=== PATIENT | male | born 1945 | race Caucasian/White ===

== ENCOUNTER 2016-11-20 06:11 | Inpatient (IN) | payer MEDICARE, OTHER ==
[2016-11-14 14:43] LABS: BUN (BLOOD UREA NITROGEN) 15 MG/DL (6-23); CALCIUM, SERUM 8.7 MG/DL (8.5-10.4); CHLORIDE, SERUM 107 MMOL/L (96-112); CO2 (CARBON DIOXIDE) 26 MMOL/L (24-34); CREATININE 1.13 MG/DL (0.70-1.30); GFR AFRICAN AMERICAN 75 ML/MIN (>=60); GFR NON AFRICAN AMERICAN 65 ML/MIN (>=60); GLUCOSE, SERUM 105 MG/DL (60-99); POTASSIUM, SERUM 3.5 MMOL/L (3.5-5.3); SODIUM, SERUM 143 MMOL/L (135-148)
--- NOTE | ~2016-11-20 | OP ---
Record Of Operation [facility] [address] [place]. [address] NAME: CONNIE VIGIL : 43 STATUS : ADM IN [facility]#: [id number] AGE: 71 ADM/REG DATE : 11/20/16 MR#: [id number] REPORT SERV DATE: 11/21/16 DICTATED BY: ERICK CUADRA II DATE: 11/21/16 REPORT STATUS : Draft TRANSCRIBED BY: MODL DATE: 11/21/16 DATE OF PROCEDURE: 11/20/2016 PREOPERATIVE DIAGNOSES: 1. Severe right lower extremity radiculopathy with neurogenic component. 2. Lumbar spinal stenosis, L2-3, L3-4 with remote history of L4-S1 fusion. 3. Adjacent segment degeneration with associated scoliosis and severe asymmetric right coronal collapse. POSTOPERATIVE DIAGNOSES: 1. Severe right lower extremity radiculopathy with neurogenic component. 2. Lumbar spinal stenosis, L2-3, L3-4 with remote history of L4-S1 fusion. 3. Adjacent segment degeneration with associated scoliosis and severe asymmetric right coronal collapse. PROCEDURE: 1. Lumbar laminectomy and facetectomy for decompression of the L2, L3, and L4 nerve roots. 2. Posterolateral arthrodesis, L2-3, L3-4. 3. Removal of hardware, L4-L5. 4. Posterior segmental instrumentation, L2-3, L3-4. 5. Use of local autograft, allograft substitute and bone morphogenic protein. 6. Use of the microscope and stereotactic spinal imaging. SURGEON: Erick Cuadra M.D. FLUIDS: 2700 mL LR. ESTIMATED BLOOD LOSS: 200 mL. DRAINS: One drain. COMPLICATIONS: None. ANTIBIOTIC: Preoperatively. PREOPERATIVE HISTORY: This is a very friendly 71-year-old gentleman, who reports severe pain radiating into the right buttock and thigh. He has some radiation into the left leg, but not as severe as the right. We discussed the pros and cons of surgery. We discussed the revision nature of the surgery, but I felt we could do it through a fairly minimally invasive approach with likely a bilateral approach given the convergent nature of the pre- existing hardware. DESCRIPTION OF PROCEDURE: After informed consent was obtained, Mr. Vigil was brought to the operating room at his request and general anesthesia achieved. He was placed in the prone position. The back was prepped and draped in a sterile fashion. The stereotactic spinal pin was placed into the left iliac crest followed by completion of the intraoperative CT Record Of Operation [address] [place]. [address] NAME: CONNIE VIGIL : 43 STATUS : ADM IN PAT#: [id number] AGE: 71 ADM/REG DATE : 11/20/16 MR#: [id number] REPORT SERV DATE: 11/21/16 DICTATED BY: ERICK CUADRA II DATE: 11/21/16 REPORT STATUS : Draft TRANSCRIBED BY: EVER DATE: 11/21/16 scan. The stereotactic guidance was then used throughout the case. Next, the right approach was performed. This was essentially a Feng approach. We then dissected down to the L2-3, L3-4, and the L4-5 regions and the cerebellar retractors were placed. We then were able to identify the L4-5 hardware. At this point, we then used a metal cutting bur to amputate the cata between L4 and L5. This allowed then removal of the L4 screw. The area was now irrigated free of the metal debris. Next, the microscope was brought into place and under microscopic visualization, the facetectomy was initiated at L3-4. The severe hypertrophic facet was now removed and the pars now taken down. The [id number]-[id number] decompression was now achieved at L3-4. The L4 nerve root appeared to have severe compression upon it. At this point, this was now alleviated again with the aggressive removal of the facet. We also decompressed the central canal as well. Next, we worked up to the L2-3 level, whereupon a similar procedure was performed with the facetectomy. The L2 and L3 nerve roots were now found to have significant compression upon them and the compression now alleviated with removal of a significant amount of the facet. At this point, irrigation was performed. The pedicle screws were now applied into L2, L3, and L4 using stereotactic guidance. His bone quality was excellent. We were now able to perform some distraction between L3 and L4 to help reduce some of the coronal collapse. At this point, the final tightening was performed. At this point, we worked over to the left side, whereupon a similar approach was performed and the cerebellar retractors placed and the metal cutting bur used to remove the hardware at L4-5. This allowed removal of the L4 screw followed by placement of the screws into L2 and L3 and L4. A repeat CT scan confirmed acceptable placement of the implants. The area was now irrigated bilaterally. On the right side, we then decorticated the transverse processes of L2, L3, and L4. There was overall excellent surface area of the transverse processes for decortication and future bone growth. Local autograft, allograft substitute and bone morphogenic protein were then placed along the decorticated surfaces. A deep drain was placed followed by standard closure bilaterally. Standard dressings were applied, and the patient was extubated and transferred to PACU in stable condition. I spoke with his daughter, [place], postoperatively and gave her the progress report and discussed the hospitalization and overall recovery and odds of success. TONI/EVER Erick Cuadra II, M.D. / [id number] Record Of [address] [address] NAME: CONNIE VIGIL : 43 STATUS : ADM IN [facility]#: [id number] AGE: 71 ADM/REG DATE : 11/20/16 MR#: [id number] REPORT SERV DATE: 11/21/16 DICTATED BY: ERICK CUADRA II DATE: 11/21/16 REPORT STATUS : Draft TRANSCRIBED BY: EVER DATE: 11/21/16 CC: Desmond Garcia II, M.D.
--- NOTE | ~2016-11-20 | DS ---
Discharge Summary [facility] [address] [place]. [address] NAME: CONNIE ROMERO : 43 STATUS : DIS IN PAT#: [id number] AGE: 71 ADM/REG DATE : 11/20/16 MR#: [id number] REPORT SERV DATE: 12/01/16 DICTATED BY: ERICK CUADRA II DATE: 11/30/16 REPORT STATUS : Draft TRANSCRIBED BY: EVER DATE: 11/30/16 Data Collection from hospitalization DISCHARGE DIAGNOSES: 1. Severe right lower extremity radiculopathy with neurogenic component. 2. Lumbar spinal stenosis, L2-3, L3-4 with remote history of L4-S1 fusion. Adjacent segment degeneration with associated scoliosis and severe asymmetric right coronal collapse. 3. Hypertension. 4. Gastroesophageal reflux disease. 5. Osteoarthritis. CONSULTATIONS: None. PROCEDURES PERFORMED: Lumbar laminectomy and facetectomy for decompression of L2-L3 and L4 nerve roots; posterolateral arthrodesis, L2-3 and L3-4; removal of hardware L4-L5; posterior segmental instrumentation, L2-3, L3-4; use of local autograft, allograft substitute, and bone morphogenetic protein; use of microscope and stereotactic spinal imaging, 11/20/2016. DISCHARGE MEDICATIONS: Vitamin D 2000 units daily, Temovate 30 g topically twice a day as needed, Nexium 40 mg daily, Rebeka 180 mg daily, Flonase nasal spray two sprays nasally daily, Robaxin 500 mg twice a day, Align Probiotic one capsule daily, MS Contin 15 mg every 12 hours, Roxicodone 5-10 mg every four to six hours as needed, Systane solution one drop as needed, Micardis 40 mg daily, cortisone as instructed. CONDITION AT DISCHARGE: Stable. DISPOSITION: The patient was discharged home on a regular diet with activities as instructed. He would follow up with me, 12/18/2016. HOSPITAL COURSE: This is a 71-year-old man, who complained of lumbar spine related symptoms. The symptoms are located in the lower back with radiation into the bilateral lower extremities with associated numbness and tingling. He rated the pain level as a 3 on a scale of 0-10. The patient has lumbar spinal stenosis at L2-3 and L3-4 with a remote history of L4-S1 fusion. He has adjacent segment degeneration with associated scoliosis and severe asymmetric right coronal collapse as well as severe right lower extremity radiculopathy with a neurogenic component. Treatment options were discussed and it was elected to proceed with surgical intervention. He was admitted to the hospital at this time for further evaluation and treatment. Upon admission, he was taken to the operating room, where he underwent the above-mentioned procedure. He tolerated this well and there were no complications. On postop day #1, he was evaluated by Physical Therapy. He was stable. He was neurologically intact. Over the next couple of days, he continued to progress. Discharge planning was performed. On 11/23/2016, he was doing well postoperatively. He was eager to go home. He felt that his right hip pain was due to the drain. Discharge instructions were given. Due to his improved and stable condition, he was discharged home with the above-stated instructions. Discharge Summary [address] [address] NAME: CONNIE ROMERO : 43 STATUS : DIS IN PAT#: [id number] AGE: 71 ADM/REG DATE : 11/20/16 MR#: [id number] REPORT SERV DATE: 12/01/16 DICTATED BY: ERICK CUADRA II DATE: 11/30/16 REPORT STATUS : Draft TRANSCRIBED BY: EVER DATE: 11/30/16 Information collected by: Stacy Desai I submit the above information as my discharge summary. KARINA/EVER Erick Cuadra II, M.D. / [id number] CC: Desmond Garcia II, M.D.
[~2016-11-20 06:11] MED LIST: ALIGN4 MG PO; ALLEGRA180 PO; CORTISONE; FLONASE NAS; METHOC500B PO; MICARDIS40 PO; MOBIC15 MG PO; NEXIUM40 PO; SYSTANE OPH; TEMOVATE CREAM30 GM TOP; VITAMIN D2000 UNIT PO
[2016-11-23] MEDS ORDERED: MSCONT15 PO (09:17)
[2016-11-23] MEDS ORDERED: OXYCOD PO (09:17)
== END 2016-11-23 11:31 | disposition home or self-care (01) | DRG 460 ==
LOC: SDC/OF 06:11 → 3SO 15:35
PROVIDERS: Orthopaedic Surgery
PROC: 0SG1071 Fusion of 2 or more Lumbar Vertebral Joints with Autologous Tissue Substitute, Posterior Approach, Posterior Column, Open Approach (ICD-10-PCS; principal; 2016-11-20 08:30)
PROC: 0SP004Z Removal of Internal Fixation Device from Lumbar Vertebral Joint, Open Approach (ICD-10-PCS; 2016-11-20 08:30)
PROC: 4A11X4G Monitoring of Peripheral Nervous Electrical Activity, Intraoperative, External Approach (ICD-10-PCS; 2016-11-20 08:30)
DX: M51.16 Intervertebral disc disorders with radiculopathy, lumbar region (principal); I10 Essential (primary) hypertension; K21.9 Gastro-esophageal reflux disease without esophagitis; E66.9 Obesity, unspecified; Z68.32 Body mass index [BMI] 32.0-32.9, adult
CPT/HCPCS: 80048; 82962; 85014; 85018; 87641; 88300; 88304; 88311; 93005; 97116-GP; 97161-GP; A9270-GY; C1713; G8978-CK-GP; G8979-CI-GP; J0690; J2250; J2370; J2405; J2710; J3010; J3370